=== PATIENT | female | born 1990 | race Caucasian/White ===

== ENCOUNTER 2021-03-06 08:00 | Outpatient (CLI) | payer SELFPAY | END 2021-03-06 23:59 | LOC: LAB 08:00 | PROVIDERS: ATTEND Family Medicine | DX: J18.9 Pneumonia, unspecified organism (principal); Z20.822 Contact with and (suspected) exposure to COVID-19 | CPT/HCPCS: 87275; 87276 ==

== ENCOUNTER 2023-06-17 14:05 | Outpatient (CLI) | payer OTHER | END 2023-06-17 23:59 | disposition critical access hospital (66) | LOC: EMS 14:05 | DX: M25.472 Effusion, left ankle (principal); W18.39XA Other fall on same level, initial encounter; Y93.51 Activity, roller skating (inline) and skateboarding; Y92.830 Public park as the place of occurrence of the external cause | CPT/HCPCS: A0425; A0429 ==

== ENCOUNTER 2023-06-17 14:07 | Day surgery (SDC) | payer OTHER ==
--- NOTE | 2023-06-17 14:20 | ED Physician Documentation ---
PD HPI LOWER EXT INJURY - Stated complaint Stated Complaint: L ANKLE PX - Chief complaint Chief Complaint: Trauma Ext - History obtained from History obtained from: Patient, EMS - History of Present Illness PD HPI LOW EXT INJURY LOCATION: Left, Ankle Type of injury: Fall, Twist Where injury occurred: Park Timing - onset: How many hours ago (1) Timing - duration: Hours (1) Timing - details: Abrupt onset Pain level max: 7 Pain level now: 4 Improved by: Rest, Ice, Immobilization Worsened by: Moving, Palpating Associated symptoms: Swelling. No: Weakness, Tingling, Discolored Contributing factors: No: Anticoagulated Recently seen: Not recently seen - Additional information Additional information: Patient is a 32-year-old female who presents to the emergency department with left ankle injury. She states that she was rollerblading when a child ran out in front of her. An attempt to avoid the child she fell all and injured the left ankle. Placed in a splint by EMS and brought here for evaluation. No head, neck, back pain. No numbness or tingling. Worse with movement, better with rest. Did not receive any medications with EMS. Review of Systems Constitutional: denies: Fever, Chills GI: denies: Vomiting, Diarrhea Skin: denies: Rash PD PAST MEDICAL HISTORY - Past Medical History Past Medical History: No - Past Surgical History Past Surgical History: No - Present Medications Home Medications: Ambulatory Orders Medication Instructions Recorded Confirmed Levonorgestrel 20 Mcg/24H [Mirena] 1 each IU DAILY 06/17/23 06/17/23 - Allergies Allergies/Adverse Reactions: Allergies Allergy/AdvReac Type Severity Reaction Status Date / Time No Known Drug Allergies Allergy Verified 06/17/23 14:20 - Living Situation Living Arrangement: reports: At home - Social History Does the pt have substance abuse?: No - Family History Family history: reports: Non contributory PD ED PE NORMAL - Vitals Vital signs reviewed: Yes - General General: Alert and oriented X 3, No acute distress - HEENT HEENT: Atraumatic, PERRL, Moist mucous membranes - Neck Neck: Supple, no meningeal sign, No bony TTP - Cardiac Cardiac: RRR - Respiratory Respiratory: No respiratory distress, Clear bilaterally - Back Back: No spinal TTP - Derm Derm: Warm and dry - Extremities Extremities: Other (L ankle - Tender to palpation over the medial and lateral malleoli of the left ankle. Moderate swelling. Neurovascular intact. No tenderness over the foot, specifically base of the fifth metatarsal. Otherwise normal examination of the left lower extremity.) - Neuro Neuro: Alert and oriented X 3 Eye Opening: Spontaneous Motor: Obeys Commands Verbal: Oriented GCS Score: 15 Results - Vitals Vitals: Vital Signs - 24 hr 06/17/23 06/17/23 06/17/23 14:16 16:00 18:06 Temperature 37.2 C Heart Rate 65 75 72 Respiratory 16 16 14 Rate Blood Pressure 137/94 H 136/81 H 138/76 H O2 Saturation 100 97 98 Oxygen O2 Source Room air - Rads (name of study) Left ankle x-ray Relevant Findings:: Final report received, See rad report Left tib-fib x-ray Relevant Findings:: Final report received, See rad report PD Medical Decision Making - ED course Complexity details: reviewed results, re-evaluated patient, considered differential, d/w patient, d/w home service consultant ED course: 32-year-old female with a medial malleolus fracture, distal left fibula fracture and disruption of the tibiotalar joint. Neurovascularly intact. Discussed the case with Dr. Mcclellan, orthopedics who came and evaluated the patient. Will take the patient to the operating room for surgical fixation. This document was made in part using voice recognition software. While efforts are made to proofread this document, sound alike and grammatical errors may occur. Departure - Departure Disposition: ED Transfer to [facility] Clinical Impression: Ankle fracture Qualifiers: Encounter type: initial encounter Fracture type: closed Laterality: left Qualified Code(s): S82.892A - Other fracture of left lower leg, initial encounter for closed fracture Condition: Stable Discharge Date/Time: 06/17/23 19:34
[2023-06-17] MEDS: HYDROmorphone 1 MG/ML CARPUJECT IM STA (14:34)
--- NOTE | 2023-06-17 14:59 | XRAY Report ---
PROCEDURE: Tib/Fib LT INDICATIONS: fall, L leg pain TECHNIQUE: 2 views of the tibia and fibula were acquired. COMPARISON: None. FINDINGS: Bones: Comminuted and mildly displaced fracture of the mid/distal fibula.. No suspicious bony lesio ns. Soft tissues: No suspicious soft tissue calcifications or masses. IMPRESSION: Comminuted and mildly displaced fracture of the mid/distal fibula. Reviewed by: Ervin Quintero MD on 06/17/2023 2:58 PM PDT Approved by: Ervin Quintero MD on 06/17/2023 2:58 PM PDT Station ID: [id number]
--- NOTE | 2023-06-17 14:59 | XRAY Report ---
PROCEDURE: Ankle 3+V LT INDICATIONS: fall, L ankle pain TECHNIQUE: 3 views of the ankle were acquired. COMPARISON: None. FINDINGS: Bones: Displaced medial malleolus fracture. Mild space comment fracture of the distal fibular shaft. Medial subluxation of the tibia with respect to the talus. No suspicious bony lesions. Mild plantar and posterior calcaneal spurring. Soft tissues: Achilles tendon appears normal. IMPRESSION: Fractures of the medial malleolus and distal fibula with medial subluxation of the tibiotalar joint. Reviewed by: Ervin Quintero MD on 06/17/2023 2:57 PM PDT Approved by: Ervin Quintero MD on 06/17/2023 2:57 PM PDT Station ID: [id number]
--- NOTE | 2023-06-17 15:52 | HISTORY & PHYSICAL EXAMINATION ---
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 Noted immediate pain in her lower calf and ankle region. Was unable to stand or weight-bear after this injury. No prior injuries to her ankle. No loss of consciousness or nausea or vomiting. No distal weakness or numbness noted either. She last ate sushi at about 1130 this morning. 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 Previous surgeries-none. Current medications-none Social & Family Hx - Social History Does the pt smoke?: No Does the pt drink ETOH?: Yes Does the pt have substance abuse?: No Meds/Allgy - Home Medications Home Medications: Ambulatory Orders Medication Instructions Recorded Confirmed Levonorgestrel 20 Mcg/24H [Mirena] 1 each IU DAILY 06/17/23 06/17/23 - Allergies Allergies/Adverse Reactions: Allergies Allergy/AdvReac Type Severity Reaction Status Date / Time No Known Drug Allergies Allergy Verified 06/17/23 14:20 Exam - Vital Signs Vital Signs: Vital Signs x48h Temp Pulse Resp BP Pulse Ox 06/17/23 14:16 37.2 C 65 16 137/94 H 100 - Physical Exam Comments/Other: Examination: Normocephalic. PERRLA. EOMs intact. Neck supple without tenderness Chest: Clear on auscultation Cardiovascular: Regular rate and rhythm, S1 and S2 heard without murmurs Abdomen: Soft nontender active bowel sounds Extremities: Within normal limit except for the left lower extremity. Has 1-2+ tenderness over the lateral mid calf on exam. Also tenderness over the medial malleolus of the ankle. Has 10 to 15 degrees ankle motion with some discomfort. Sensation intact distally. Moves her toes satisfactory. Good capillary filling of the toes. Impression/Plan - Problem List Problem List: Closed left ankle fracture-involving a displaced medial malleolar fracture component, a distal third short oblique fracture of the fibular shaft, and a widened ankle mortise with a syndesmotic ligament disruption. Plan: Since patient ate sushi at about 1130 will plan then on proceeding with surgical intervention at 730 this evening. Will plan on doing a plating of her fibular shaft fracture with a 3 to 5 mm DCP plate. Use 4.0 cannulated screws to fix the medial malleolar ankle fracture prior. Finally will insert a 4.5 mm cortical screw as a syndesmotic screw to hold the reduced ankle joint over the next 6 to 8 weeks. Will plan on doing this outpatient surgery with overnight observation to make sure she is stable to and safe to ambulate with crutches nonweightbearing with physical therapy in the morning. The risk and benefits of surgery were explained to the patient including malunion nonunion wound infection blood loss blood clots etc. Her questions were answered. She wishes to proceed with surgery as indicated. Consent signed. Leg marked.
--- NOTE | 2023-06-17 18:36 | ANESTHESIA ---
Pre-Anesthesia VS, & Labs - Diagnosis Left ankle fracture - Procedure ORIF left ankle Vital Signs: Temp Pulse Resp BP Pulse Ox O2 Flow Rate 37.2 C 72 14 138/76 H 98 06/17/23 14:16 06/17/23 18:06 06/17/23 18:06 06/17/23 18:06 06/17/23 18:06 Height: 5 ft 5 in Weight (kg): 95.254 kg Body Mass Index: 34.9 BMI Classification: Obese - NPO Other (full lunch at 11:30) - Is Patient ?: No (abstains) Home Medications and Allergies Home Medications: Ambulatory Orders Levonorgestrel 20 Mcg/24H [Mirena] 1 each IU DAILY 06/17/23 Levonorgestrel 20 Mcg/24H [Mirena] 1 each IU DAILY 06/17/23 Allergies/Adverse Reactions: Allergies Allergy/AdvReac Type Severity Reaction Status Date / Time No Known Drug Allergies Allergy Verified 06/17/23 14:20 Anes History & Medical History - Anesthetic History Anesthesia Complications: reports: No previous complications - Medical History Cardiovascular: reports: None Pulmonary: reports: None Gastrointestinal: reports: None Urinary: reports: None Neuro: reports: None Musculoskeletal: reports: None Endocrine/Autoimmune: reports: None Blood Disorders: reports: None Skin: reports: None - Surgical History Other Past Surgical History: Past medical history: Chronic illnesses-none. Previous surgeries-none. Current medications-none Exam General: Alert, Oriented x3 Dental: WNL, Other (#10 missing) Mouth Opening: Greater than 4 Fingerbreadths Neck Mobility: Normal Mallampati classification: II Thyromental Distance: greater than 6 cm Respiratory: Lungs clear Cardiovascular: Regular rate Plan Anesthesia Type: General, Popliteal Block Consent for Procedure(s) Verified and Reviewed: Yes Code Status: Attempt Resuscitation ASA classification: 2-Mild systemic disease Is this case an emergency?: Yes
[2023-06-17] MEDS ORDERED: MORPHINE 2 MG/ML CARPUJECT IVP PRN ×2 (18:53→21:58)
[2023-06-17] MEDS ORDERED: METOCLOPRAMIDE 10 MG/2 ML VIAL IVP PRN (18:53)
[2023-06-17] MEDS ORDERED: fentaNYL 100 MCG/2 ML VIAL IVP PRN (18:53)
[2023-06-17] MEDS ORDERED: ATROPINE ABBOJECT 1 MG/10 ML SYRINGE IVP PRN (18:53)
[2023-06-17] MEDS ORDERED: ePHEDrine 50 MG/ML VIAL IVP PRN (18:53)
[2023-06-17] MEDS ORDERED: NALOXONE 0.4 MG/ML VIAL IVP PRN (18:53)
[2023-06-17] MEDS ORDERED: ONDANSETRON 4 MG/2 ML VIAL IVP PRN ×2 (18:53→21:58)
[2023-06-17] MEDS ORDERED: ROCURONIUM 50 MG/5 ML VIAL ONE (19:00)
[2023-06-17] MEDS ORDERED: LACTATED RINGERS 1,000 ML IV SCH (19:00)
[2023-06-17] MEDS ORDERED: fentaNYL 100 MCG/2 ML VIAL ONE (19:00)
[2023-06-17] MEDS ORDERED: PROPOFOL 200 MG/20 ML VIAL IVP ONE (19:00)
[2023-06-17] MEDS ORDERED: MIDAZOLAM 2 MG/2 ML VIAL ONE (19:00)
[2023-06-17] MEDS ORDERED: BUPIVACAINE 0.25% PF 30 ML VIAL ONE (19:20)
[2023-06-17] MEDS: HYDROmorphone 0.5 MG/0.5 ML SYRINGE IVP PRN (19:20)
[2023-06-17] MEDS ORDERED: ceFAZolin 1 GM VIAL ONE (19:46)
[2023-06-17] MEDS ORDERED: DEXAMETHASONE 10 MG/ML VIAL ONE (20:00)
[2023-06-17] MEDS ORDERED: ROPIVACAINE 0.5% PF 20 ML VIAL ONE (20:00)
[2023-06-17] MEDS ORDERED: ACETAMINOPHEN 1,000 MG/100 ML 1,000 MG/100 ML BAG IV ONE (20:44)
[2023-06-17] MEDS ORDERED: LIDOCAINE-PF 2% 10 ML AMP SUBQ ONE (20:48)
--- NOTE | 2023-06-17 21:51 | OPERATIVE REPORT ---
Operative Report - General Procedure Date: 06/17/23 Planned Procedure: Open reduction and internal fixation for left ankle fracture with 3 to 5 mm DCP plating of the fibular shaft fracture; 4.0 mm cannulated screw fixation of the medial malleolus fracture; insertion of syndesmotic screw Pre-Op Diagnosis: Left ankle fracture Procedure Performed: Open reduction internal fixation of left ankle fracture Post Op Diagnosis: Same - Procedure Note Primary Surgeon: Enrique Mcclellan MD Secondary Surgeon: JENSEN Buenrostro Anesthesia Provider: Monster Elizalde CRNA Anesthesia Technique: General ET tube IV Fluids (mL): 1,200 Estimated Blood Loss (mL): 100 Complications: None - Other Other Information/Narrative: Description of procedure: Patient was taken the operating room in the evening of her accident from the emergency room. She was placed under general anesthetic without any complications. She remained supine while at thigh pneumatic tourniquet was placed on her leg. This tourniquet was not inflated during the case however. Also a hip bump was placed on the left side as well. We then prepped and draped the left ankle free in usual fashion for our procedure. Making a distal lateral calf incision we dissected down to her fracture. Using a gotti elevator to remove the periosteum about the fracture. Curette was then used to remove the fracture hematoma from the fracture. With traction on the leg and manipulation of the fracture using several fracture reduction clamps we were able to bring the fracture back out to length and appeared to be in good position. We then selected an 8 hole 3 5 mm DCP plate and applied this laterally across the fracture. We then placed the appropriate length 3.5 millimeter cortical screws placing 1 in the proximal end of the plate and the second in the distal end of the plate. Fluoroscopic views showed that we maintained the length of the fracture and the plate appeared to be aligned along the lateral aspect of the distal fibular shaft with the fracture in the midportion of our plate. Using standard technique we then alternated proximal and distal ends of the plate inserting the appropriate length 3 to 5 mm cortical screws. Fluoroscopic views at the end of our plate and showed that we had adequate fixation of our fracture and we were satisfied with the placement of all hardware. We then directed attention medially. Through a slightly curvilinear skin incision we dissected down to the medial malleolar ankle fracture. Curette was then used to remove the fracture hematoma. A towel clip reduction clamp was used to grab hold of our distal fracture fragment. Under direct vision were able to reduce this fracture adequately. This was then held in place with a second towel clip reduction clamp. Fluoroscopic view showed again the sat isfactory reduction of medial malleolar active go fragments. We then proceeded to insert several threaded tip 2.0 mm guidepins from the 4.0 cannulated screw set in an oblique fraction across the medial malleolar fracture fragment up into the distal tibial metaphysis. Fluoroscopic views showed proper position of our guidepin. The second pin was then inserted in a parallel fashion to the first inserted pin. We then predrilled over our cannulated screws with the 2.7 millimeter cannulated drills. This was then followed up with our selected a 4.0 cannulated screws. We used 1 that was 35 mm in length and the second 132 mm in length. We obtain good compression of our fracture. We then directed our attention to the ankle joint. Holding the ankle in a neutral position we then proceeded to apply a large towel clip reduction clamp to reduce the syndesmotic disruption. Fluoroscopic views showed the ankle mortise to be reestablished. We then proceeded to insert a 4 to 5 mm cortical screw across the ankle joint spanning the distal fibular and distal tibial portions. We then removed the reduction clamp and obtain permanent x-rays showing a good reduction of our ankle fracture reestablishing the ankle mortise and satisfactory placement of all hardware. We then washed the wounds out thoroughly with saline. We then closed the wound in layers closing the subcutaneous tissues using buried simple stitches of 3-0 Vicryl. Finally skin yuridia used to approximate the skin edge. We then dressed the wounds then applied a long-leg posterior splint holding the ankle again in the neutral position. Patient then transferred off the operating room table and taken to recovery room in satisfactory condition. Estimated blood loss: 100 mL Replacement: 1200 cc crystalloid solution Tourniquet time: None Complications: None Plan: Patient will be nonweightbearing for probably 8 weeks in view of her large size. Will then remove the syndesmotic screw as an outpatient in the OR and then begin weightbearing ambulation.
[2023-06-17] MEDS ORDERED: oxyCODONE 5 MG TABLET PO PRN (21:58)
[2023-06-17] MEDS ORDERED: DOCUSATE SODIUM 100 MG CAPSULE PO PRN (21:58)
[2023-06-17] MEDS ORDERED: ACETAMINOPHEN 325 MG TABLET PO SCH (22:00)
[2023-06-17] MEDS: LACTATED RINGERS 1,000 ML IV ONE ×2 (22:09→22:42)
--- NOTE | 2023-06-17 22:30 | ANESTHESIA POST OP EVALUATION ---
Anesthesia Post Eval - Post Anesthesia Eval Vitals: Last Vital Signs Temp 36.6 C 06/17/23 22:09 Pulse 95 06/17/23 22:25 Resp 19 06/17/23 22:25 BP 122/82 H 06/17/23 22:25 Pulse Ox 100 06/17/23 22:25 O2 Flow Rate CV Function Including HR & BP: Stable Pain Control: Satisfactory Nausea & Vomiting: Negative Mental Status: Baseline Respiratory Status: Airway Patent Hydration Status: Satisfactory Anesthesia Complications: None
[2023-06-17] MEDS: ACETAMINOPHEN 500 MG TABLET PO SCH (23:26)
[2023-06-17] MEDS: NS W/20 MEQ KCL 1,000 ML IV SCH (23:27)
[2023-06-17] MEDS: ceFAZolin (2G) 2 GM in SODIUM CHLORIDE 0.9% MINIBAG 100 ML IV SCH (23:27)
[2023-06-18] MEDS: CELECOXIB 100 MG CAPSULE PO SCH (08:30)
[2023-06-18] MEDS: ASPIRIN EC 81 MG TABLET PO SCH (08:30)
--- NOTE | 2023-06-18 09:07 | PROVIDER PROGRESS NOTE ---
Subjective - Prog Note Date Prog Note Date: 06/18/23 Prog Note Time: 09:04 - Subjective Subjective: No complaints. Block is still working Objective - Vital Signs/Intake & Output Vital Signs: Vital Signs x48h Temp Pulse Resp BP Pulse Ox 06/18/23 08:32 36.8 C 79 12 121/78 94 06/18/23 05:17 36.8 C 78 15 108/62 95 06/18/23 02:00 76 12 113/78 94 Intake & Output: Intake & Output 06/15/23 06/16/23 06/17/23 06/18/23 23:59 23:59 23:59 23:59 Intake Total 778.75 Balance 778.75 - Other Results/Comments Other Results/Comments: Splint intact. Not moving toes. Still numb Assessment/Plan - Problem List (1) Ankle fracture Impression: Satis post op PLAN: PT to check her out on crutches - NWB on left. D/C home later today. Oxycodone and alternating tylenol and advil for pain relief. RTC in 5 days for splint check and and possible XR. RTC to see Dr. Mcclellan in 5 weeks. Qualifiers: Encounter type: initial encounter Fracture type: closed Laterality: left Qualified Code(s): S82.892A - Other fracture of left lower leg, initial encounter for closed fracture
--- NOTE | 2023-06-18 09:34 | XRAY Report ---
PROCEDURE: OR C-Arm Procedure INDICATIONS: left ankle fracture FLUORO TIME: 0.6 min TECHNIQUE: 4 intraoperative fluoroscopic images COMPARISON: None left ankle radiograph on June 17, 2023. FINDINGS: 4 intraoperative fluoroscopic images of ORIF of the left ankle with surgical plate and screw fixation in the distal fibula, transsyndesmotic screw and single fixation screw of the medial malleolus. Impr ren alignment. Please see operative report for details. Fluoroscopy time: 0.6 minutes Air kerma: 3.2 mGy IMPRESSION: Intraoperative fluoroscopic images of ORIF of the left ankle. Please see operative report for details . Reviewed by: Melissa Vargas MD on 06/18/2023 9:33 AM PDT Approved by: Melissa Vargas MD on 06/18/2023 9:33 AM PDT Station ID: [id number]
--- NOTE | 2023-06-18 11:18 | PHARMACY PROGRESS NOTE ---
- Best Possible Medication History Admit Date and Time: Processed by: Nursing Medications reviewed in ED?: No Medication History completed: Yes Patient Interview: Completed As the person ultimately responsible for medication therapy, providers are able to order a medication from an existing home medication list in [facility] via the "Reconcile Routine" prior to Confirmation of that medication by marketing support assistant. Such practice is discouraged except when the physician, in their clinical judgment, deems that a medical need exists for a medication without regard to previous use.
[2023-06-18 11:35] VITALS: O2SAT 96
[2023-06-18 13:19] VITALS: BP 149/71
== END 2023-06-18 12:45 | disposition home or self-care (01) ==
LOC: EDUNIT# → ED 14:07 → SDS 15:30 → ICU 22:22 → SDS 06-18 12:45
PROVIDERS: ATTEND Orthopaedic Surgery
DX: S82.832A Other fracture of upper and lower end of left fibula, initial encounter for closed fracture (principal); S82.52XA Displaced fracture of medial malleolus of left tibia, initial encounter for closed fracture; X50.1XXA Overexertion from prolonged static or awkward postures, initial encounter; S93.432A Sprain of tibiofibular ligament of left ankle, initial encounter; Y93.51 Activity, roller skating (inline) and skateboarding; W19.XXXA Unspecified fall, initial encounter; E66.9 Obesity, unspecified; Z68.34 Body mass index [BMI] 34.0-34.9, adult
CPT/HCPCS: 27766; 27784; 27829; 73590; 73610; 96372; 96374; 97116; 97161; 97166; 99285; A9270; J0131; J1170; J2795; J7120

== ENCOUNTER 2023-07-27 10:24 | Outpatient (CLI) | payer OTHER ==
--- NOTE | 2023-07-28 19:27 | XRAY Report ---
PROCEDURE: Ankle 3+V LT INDICATIONS: DISPLACED BIMALLEOLAR OF LT LEG TECHNIQUE: 3 views of the ankle were acquired. COMPARISON: Left ankle radiograph on June 17, 2023. FINDINGS: Bones: Lateral surgical plate and screw fixation of the distal fibular diaphyseal fractures intact w ith no perihardware lucency to suggest hardware loosening. 2 screws transfixing the medial malleolus and single transsyndesmotic screw are intact with no perihardware lucency to suggest hardware looseni ng. Anatomic alignment. Osseous fragment in the lateral soft tissue adjacent to the distal fibular obando rdware measuring 2.3 cm. Ankle mortise is normally aligned. No suspicious bony lesions. Soft tissues: No tibiotalar joint effusion. Achilles tendon appears normal. IMPRESSION: 1.ORIF of the bimalleolar fracture is intact without complication. Anatomic alignment. 2.Osseous fragment in the lateral soft tissue adjacent to the distal fibular hardware measuring 2.3 c m. Reviewed by: Melissa Vargas MD on 07/28/2023 7:26 PM PDT Approved by: Melissa Vargas MD on 07/28/2023 7:26 PM PDT Station ID: [id number]
== END 2023-07-27 10:25 | disposition home or self-care (01) ==
LOC: DI 10:24
PROVIDERS: ATTEND Orthopaedic Surgery
DX: S82.842D Displaced bimalleolar fracture of left lower leg, subsequent encounter for closed fracture with routine healing (principal)

== ENCOUNTER 2023-09-08 16:56 | Outpatient (CLI) | payer OTHER ==
--- NOTE | 2023-09-08 21:31 | XRAY Report ---
PROCEDURE: Ankle 3+V LT INDICATIONS: DISPLACED BIMALLEOLAR FRACTURE OF LEFT LOWER LEG TECHNIQUE: 3 views of the ankle were acquired. COMPARISON: 3 views of the ankle dated 07/19/2023 FINDINGS: Bones: ORIF of the distal fibular diaphysis and the tibiofibular syndesmosis is redemonstrated. Frac ture fragments are in unchanged anatomic alignment and appear less conspicuous than on the prior stud y dated 07/27/2023. As before, a bone fragment is present within the lateral soft tissues unchanged fr om the prior study. Soft tissues: No tibiotalar joint effusion. Achilles tendon appears normal. IMPRESSION: Stable postoperative change and soft tissue bone fragment as before. Reviewed by: Pati Morrison MD on 09/08/2023 9:30 PM PDT Approved by: Pati Morrison MD on 09/08/2023 9:30 PM PDT Station ID: [id number]
== END 2023-09-08 16:57 | disposition home or self-care (01) ==
LOC: DI 16:56
PROVIDERS: ATTEND Orthopaedic Surgery
DX: S82.842D Displaced bimalleolar fracture of left lower leg, subsequent encounter for closed fracture with routine healing (principal)

== ENCOUNTER 2023-10-08 15:01 | Outpatient (CLI) | payer OTHER ==
--- NOTE | 2023-10-08 16:21 | XRAY Report ---
PROCEDURE: Ankle 3+V LT INDICATIONS: DISPLACED BIMALLEOLAR FX OF LEFT LOWER LEG TECHNIQUE: 3 views of the ankle were acquired. COMPARISON: 06/17/2023, 07/27/2023, 09/08/2023. FINDINGS: Bones: Expected appearance of orthopedic surgical hardware. Side plate and screw fixation of a dista l fibular shaft fracture, syndesmosis screw, cannulated screw pinning of a medial malleolar fracture. Subtle residual changes related to medial malleolar and posterior malleolar fractures as well as the distal fibular fracture. Slight interval progress in healing since the most recent prior study. Ankl e mortise is normally aligned. No suspicious bony lesions. Soft tissues: No tibiotalar joint effusion. Achilles tendon appears normal. IMPRESSION: Expected appearance post ORIF. Reviewed by: Tereso Harris MD on 10/08/2023 4:19 PM PDT Approved by: Tereso Harris MD on 10/08/2023 4:19 PM PDT Station ID: [id number]
== END 2023-10-08 15:02 | disposition home or self-care (01) ==
LOC: DI 15:01
PROVIDERS: ATTEND Orthopaedic Surgery
DX: S82.842D Displaced bimalleolar fracture of left lower leg, subsequent encounter for closed fracture with routine healing (principal)